=== PATIENT | female | born 1940 | race Hispanic/Latino ===

== ENCOUNTER 2021-12-20 18:16 | Inpatient (IN) | payer MEDICARE, MEDICAID ==
[2021-12-20 19:07] LABS: #Eosinphils 0.1 thou/uL (0.0-0.7); #Lymphocytes 1.6 thou/uL (1.20-3.40); #Monocytes 0.5 thou/uL (0.11-0.59); %Basophils 0.5 % (0.0-1.0); %Eosinophils 2.4 % (0.0-10.0); %Lymphocytes 31.1 % (21.0-51.0); %Monocytes 9.8 % (0.0-10.0); %Neutrophils 56.2 % (42.0-75.0); Hemoglobin 10.9 g/dL (12.0-16.0); Mean Corpuscular HGB CONC 32.6 g/dL (32.0-36.0); Mean Corpuscular Hemoglobin 32.2 pg (27.0-31.0); Mean Corpuscular Volume 98.7 fL (78.0-98.0); Mean Platelet Volume 9.4 fL (7.4-10.4); Platelet Count 217 thou/uL (130-400); RBC Distribution Width 12.3 % (11.5-14.5); Red Blood Cell (RBC) Count 3.38 mill/uL (4.20-5.40); White Blood Cell (WBC) Count 5.3 thou/uL (4.8-10.8)
[2021-12-20 19:29] LABS: Bacteria/HPF None Seen HPF (None Seen); Bilirubin Negative (Negative); Blood, Urine Negative (Negative); Clarity Clear (Clear); Glucose, Urine (Dipstick) Normal (Negative); Ketone, Urine Negative (Negative); Leukocyte 500 Leu/uL (Negative); Nitrite Negative (Negative); Protein, Urine (Dipstick) Negative (Neg-Trace); RBC/HPF 0-3 HPF (0-3); Specific Gravity, Urine 1.015 (1.002-1.036); Squamous Epithelial None Seen HPF (0-3); Urobilinogen Normal mg/dL (Less than 2); WBC/HPF 21-50 HPF (0-3)
[2021-12-20 19:29] LABS: ALT (SGPT) Less than 7 U/L (8-55); AST (SGOT) 11 U/L (5-34); Alkaline Phosphatase 50 U/L (40-110); Anion Gap 12 mmol/L (10-20); BUN (Urea Nitrogen) 21 mg/dL (9.8-20.1); Bilirubin, Total 0.2 mg/dL (0.2-1.2); Calc. Creatinine Clearance 0 mL/min (70-130); Calcium 8.2 mg/dL (7.8-10.44); Carbon Dioxide 27 mmol/L (23-31); Chloride 110 mmol/L (98-107); Estimated GFR 44; Globulin 2.3 g/dL (2.4-3.5); Glucose 106 mg/dL (83-110); Potassium 3.1 mmol/L (3.5-5.1); Protein, Total 5.3 g/dL (5.8-8.1); Sodium 146 mmol/L (136-145)
[2021-12-20] MEDS ORDERED: Vancomycin 1 GM/200 ML BAG ONE (20:15)
[2021-12-20] MEDS ORDERED: cefTRIAXone\\ROCEPHIN 1 GM VIAL ONE (20:15)
[2021-12-20 22:07] VITALS: BMI 22.3
[2021-12-20] MEDS ORDERED: Acetaminophen 325 MG TAB PO PRN (22:30)
[2021-12-20] MEDS ORDERED: Ondansetron ODT 4 MG TAB SL PRN (22:30)
[2021-12-20] MEDS ORDERED: Ondansetron PF 4 MG/2 ML Vial IVP PRN (22:30)
[2021-12-20] MEDS ORDERED: Electrolyte Replacement Protocol 1 EACH FS SCH (22:30)
[2021-12-20] MEDS ORDERED: Lisinopril 10 MG TAB PO SCH (23:00)
[2021-12-20] MEDS ORDERED: Potassium Chloride 20 MEQ TAB PO SCH (23:00)
[2021-12-20] MEDS: Sodium Chloride 0.9% 1,000 ML IV SCH (23:07)
[2021-12-20 23:49] LABS: Magnesium 2.1 mg/dL (1.6-2.6)
[2021-12-21] MEDS ORDERED: Potassium Bicarbonate/Cit Ac 20 MEQ TAB PO SCH (01:00)
[2021-12-21] MEDS: Sodium Chloride 0.9% 1,000 ML IV SCH (05:25)
[2021-12-21] MEDS ORDERED: Acetaminophen 325 MG TAB PO PRN (05:54)
[2021-12-21 05:59] LABS: #Eosinphils 0.1 thou/uL (0.0-0.7); #Lymphocytes 1.6 thou/uL (1.20-3.40); #Monocytes 0.4 thou/uL (0.11-0.59); #Neutrophils 3.7 thou/uL (1.40-6.50); %Basophils 0.7 % (0.0-1.0); %Lymphocytes 26.8 % (21.0-51.0); %Monocytes 7.5 % (0.0-10.0); Hemoglobin 11.7 g/dL (12.0-16.0); Mean Corpuscular HGB CONC 33.3 g/dL (32.0-36.0); Mean Corpuscular Hemoglobin 32.5 pg (27.0-31.0); Mean Corpuscular Volume 97.7 fL (78.0-98.0); Mean Platelet Volume 9.7 fL (7.4-10.4); Platelet Count 236 thou/uL (130-400); RBC Distribution Width 12.1 % (11.5-14.5); White Blood Cell (WBC) Count 5.9 thou/uL (4.8-10.8)
[2021-12-21 06:18] LABS: Anion Gap 14 mmol/L (10-20); BUN (Urea Nitrogen) 16 mg/dL (9.8-20.1); Calc. Creatinine Clearance 44 mL/min (70-130); Calcium 8.4 mg/dL (7.8-10.44); Carbon Dioxide 24 mmol/L (23-31); Chloride 107 mmol/L (98-107); Estimated GFR 63; Glucose 89 mg/dL (83-110); Potassium 4.4 mmol/L (3.5-5.1); Sodium 141 mmol/L (136-145)
[2021-12-21] MEDS: Enoxaparin Sodium 30 MG/0.3 ML SYRINGE SC SCH (08:26)
[2021-12-21] MEDS ORDERED: cefTRIAXone\\ROCEPHIN 1 GM in Sodium Chloride 0.9% 100 ML IVPB SCH (20:00)
[2021-12-21] MEDS ORDERED: Lisinopril 10 MG TAB PO SCH (21:00)
[2021-12-22] MEDS: Enoxaparin Sodium 30 MG/0.3 ML SYRINGE SC SCH (08:11)
[2021-12-22 08:46] VITALS: BP 165/49; TEMP 98
== END 2021-12-22 13:55 | disposition home health service (06) | DRG 922 ==
LOC: ERS 18:16 → T4-A 19:54
PROVIDERS: ADMIT Internal Medicine; ATTEND Internal Medicine
DX: T67.5XXA Heat exhaustion, unspecified, initial encounter (principal); G93.41 Metabolic encephalopathy; N17.9 Acute kidney failure, unspecified; N30.00 Acute cystitis without hematuria; Z20.822 Contact with and (suspected) exposure to COVID-19; E86.0 Dehydration; X58.XXXA Exposure to other specified factors, initial encounter; D64.9 Anemia, unspecified; E87.6 Hypokalemia; D17.24 Benign lipomatous neoplasm of skin and subcutaneous tissue of left leg; Z95.0 Presence of cardiac pacemaker; I25.2 Old myocardial infarction; Z90.710 Acquired absence of both cervix and uterus; Z88.5 Allergy status to narcotic agent; Z79.899 Other long term (current) drug therapy
CPT/HCPCS: 36415; 70450; 71045; 72125; 80048; 80053; 81003; 81015; 83605; 83735; 83880; 84484; 85025; 87040; 87077; 87086; 87186; 93005; 93306; 94760; J0696; J1650; J3370; J3490; J7050; U0003; U0005

== ENCOUNTER 2023-04-17 10:15 | Inpatient (IN) | payer MEDICARE, MEDICAID ==
[2023-04-17 11:06] LABS: #Monocytes 0.7 thou/uL (0.11-0.59); #Neutrophils 12.5 thou/uL (1.40-6.50); %Basophils 0.3 % (0.0-1.0); %Eosinophils 0.1 % (0.0-10.0); %Lymphocytes 4.3 % (21.0-51.0); %Neutrophils 89.9 % (42.0-75.0); Hematocrit 44.6 % (36.0-47.0); Hemoglobin 15.1 g/dL (12.0-16.0); Mean Corpuscular HGB CONC 33.9 g/dL (32.0-36.0); Mean Corpuscular Hemoglobin 31.6 pg (27.0-31.0); Mean Corpuscular Volume 93.3 fl (78.0-98.0); Mean Platelet Volume 11.7 fL (7.4-10.4); Platelet Count 278 10x3/uL (130-400); RBC Distribution Width 13.2 % (11.5-14.5); Red Blood Cell (RBC) Count 4.78 mill/uL (4.20-5.40); White Blood Cell (WBC) Count 13.9 10x3/uL (4.8-10.8)
[2023-04-17] MEDS ORDERED: cefTRIAXone (ROCEPHIN) 1 GM VIAL ONE (11:24)
[2023-04-17] MEDS ORDERED: Sodium Chloride 0.9% 100 ML ONE (11:25)
[2023-04-17 12:30] LABS: ALT (SGPT) 9 U/L (8-55); AST (SGOT) 30 U/L (5-34); Albumin 4.7 g/dL (3.4-4.8); Alkaline Phosphatase 66 U/L (40-110); Anion Gap 14 mmol/L (10-20); BUN (Urea Nitrogen) 18 mg/dL (9.8-20.1); Calc. Creatinine Clearance 0 mL/min (70-130); Calcium 9.9 mg/dL (7.8-10.44); Carbon Dioxide 26 mmol/L (23-31); Chloride 99 mmol/L (98-107); Estimated GFR 72; Globulin 2.7 g/dL (2.4-3.5); Glucose 105 mg/dL (83-110); Potassium 3.4 mmol/L (3.5-5.1); Protein, Total 7.4 g/dL (5.8-8.1); Sodium 136 mmol/L (136-145)
[2023-04-17 12:39] LABS: Bacteria/HPF None Seen HPF (None Seen); Bilirubin Negative (Negative); Blood, Urine Trace (Negative); CAUTI Indications for Culture Dysuria,urgency,freq; Clarity Clear (Clear); Glucose, Urine (Dipstick) Normal (Negative); Ketone, Urine 10 mg/dL (Negative); Leukocyte 25 Leu/uL (Negative); Nitrite Negative (Negative); Protein, Urine (Dipstick) 30 mg/dL (Neg-Trace); RBC/HPF 0-3 HPF (0-3); Specific Gravity, Urine 1.012 (1.002-1.036); Squamous Epithelial 0-3 HPF (0-3); Urobilinogen Normal mg/dL (Less than 2)
[2023-04-17 12:40] LABS: Urine Culture Reflex No No
[2023-04-17 12:42] LABS: Amphetamine Not Detected (NotDetected); Barbiturates Screen Not Detected (NotDetected); Benzodiazepine Screen Not Detected (NotDetected); Cocaine Metabolite Screen Not Detected (NotDetected); Methadone Not Detected (NotDetected); Methamphetamine Not Detected (NotDetected); Opiate Screen Not Detected (NotDetected); Oxycodone Screen Not Detected (NotDetected); Phencyclidine (PCP) Not Detected (NotDetected); THC/Cannabinoid Screen Not Detected (NotDetected); Tricyclic Screen Not Detected (NotDetected)
[2023-04-17 14:14] LABS: SARS-CoV-2 NAA Rapid Test Not Detected (NotDetected)
[2023-04-17 14:46] LABS: Lactic Acid 1.9 mmol/L (0.5-2.2)
[2023-04-17] MEDS ORDERED: Senokot S 8.6-50 MG TAB PO PRN (15:06)
[2023-04-17] MEDS ORDERED: Ondansetron ODT 4 MG TAB PO PRN (15:06)
[2023-04-17] MEDS ORDERED: Calcium Carbonate 500 MG ChewTAB PO PRN (15:06)
[2023-04-17 16:43] VITALS: BMI 27.4
[2023-04-17] MEDS ORDERED: Lisinopril 10 MG TAB PO SCH (21:00)
[2023-04-17] MEDS: Famotidine 20 MG TAB PO SCH (21:18)
[2023-04-18 05:43] LABS: Anion Gap 13 mmol/L (10-20); BUN (Urea Nitrogen) 15 mg/dL (9.8-20.1); Calc. Creatinine Clearance 64 mL/min (70-130); Calcium 8.3 mg/dL (7.8-10.44); Carbon Dioxide 22 mmol/L (23-31); Chloride 107 mmol/L (98-107); Estimated GFR 76; Glucose 64 mg/dL (83-110); Potassium 3.3 mmol/L (3.5-5.1); Sodium 139 mmol/L (136-145)
[2023-04-18 06:42] LABS: #Eosinphils 0.2 thou/uL (0.0-0.7); #Monocytes 0.5 thou/uL (0.11-0.59); #Neutrophils 5.5 thou/uL (1.40-6.50); %Basophils 0.4 % (0.0-1.0); %Eosinophils 2.1 % (0.0-10.0); %Lymphocytes 19.3 % (21.0-51.0); %Monocytes 6.1 % (0.0-10.0); %Neutrophils 71.6 % (42.0-75.0); Hematocrit 35.8 % (36.0-47.0); Mean Corpuscular HGB CONC 32.1 g/dL (32.0-36.0); Mean Platelet Volume 11.5 fL (7.4-10.4); Platelet Count 232 10x3/uL (130-400); RBC Distribution Width 13.5 % (11.5-14.5); Red Blood Cell (RBC) Count 3.71 mill/uL (4.20-5.40); White Blood Cell (WBC) Count 7.7 10x3/uL (4.8-10.8)
[2023-04-18] MEDS ORDERED: Electrolyte Replacement Protocol 1 EACH FS SCH (06:45)
[2023-04-18 06:46] LABS: Hemoglobin 11.5 g/dL (12.0-16.0); Mean Corpuscular Volume 96.5 fl (78.0-98.0)
[2023-04-18 07:17] LABS: Magnesium 1.9 mg/dL (1.6-2.6)
[2023-04-18] MEDS ORDERED: Magnesium 2 GM/50 ML(in water) 2 GM in Premix 1 BAG IVPB SCH (08:00)
[2023-04-18] MEDS ORDERED: Potassium Chloride 20 MEQ TAB PO SCH (08:00)
[2023-04-18] MEDS: Famotidine 20 MG TAB PO SCH (08:26)
[2023-04-18] MEDS: Acetaminophen 325 MG TAB PO PRN (08:26)
[2023-04-18] MEDS ORDERED: cefTRIAXone\\ROCEPHIN 1 GM in Sodium Chloride 0.9% 100 ML IVPB SCH (20:00)
[2023-04-18] MEDS ORDERED: diphenhydrAMINE 30 GM TUBE TOP PRN (21:38)
[2023-04-18] MEDS ORDERED: diphenhydrAMINE 25 MG CAP PO PRN (21:40)
[2023-04-19 05:02] LABS: #Eosinphils 0.3 thou/uL (0.0-0.7); #Monocytes 0.6 thou/uL (0.11-0.59); %Basophils 0.4 % (0.0-1.0); %Eosinophils 4.2 % (0.0-10.0); %Lymphocytes 29.3 % (21.0-51.0); %Monocytes 8.6 % (0.0-10.0); %Neutrophils 57.4 % (42.0-75.0); Hematocrit 35.4 % (36.0-47.0); Hemoglobin 11.6 g/dL (12.0-16.0); Mean Corpuscular HGB CONC 32.8 g/dL (32.0-36.0); Mean Corpuscular Hemoglobin 31.4 pg (27.0-31.0); Mean Corpuscular Volume 95.9 fl (78.0-98.0); Mean Platelet Volume 11.7 fL (7.4-10.4); Platelet Count 238 10x3/uL (130-400); RBC Distribution Width 13.5 % (11.5-14.5); Red Blood Cell (RBC) Count 3.69 mill/uL (4.20-5.40); White Blood Cell (WBC) Count 7.1 10x3/uL (4.8-10.8)
[2023-04-19 05:10] LABS: Anion Gap 14 mmol/L (10-20); BUN (Urea Nitrogen) 19 mg/dL (9.8-20.1); Calc. Creatinine Clearance 60 mL/min (70-130); Calcium 8.1 mg/dL (7.8-10.44); Carbon Dioxide 22 mmol/L (23-31); Chloride 107 mmol/L (98-107); Estimated GFR 70; Glucose 80 mg/dL (83-110); Sodium 139 mmol/L (136-145)
[2023-04-19] MEDS: Lidocaine 4% Patch TD SCH (09:13)
[2023-04-19] MEDS: Acetaminophen 325 MG TAB PO PRN ×2 (09:17→21:28)
[2023-04-19] MEDS: Lisinopril 5 MG TAB PO SCH (21:28)
[2023-04-19] MEDS: Transdermal Patch Removal TOP SCH (21:29)
[2023-04-20] MEDS: Lidocaine 4% Patch TD SCH (10:56)
[2023-04-20] MEDS: Lisinopril 5 MG TAB PO SCH ×2 (19:50→22:18)
[2023-04-20] MEDS: Transdermal Patch Removal TOP SCH (19:54)
[2023-04-20] MEDS ORDERED: Melatonin 3 MG TAB PO PRN (21:14)
[2023-04-21 05:14] LABS: Toxoplasma IgG AB Less than 3.0 IU/mL (0.0-7.1)
[2023-04-21 05:26] LABS: #Eosinphils 0.3 thou/uL (0.0-0.7); #Monocytes 0.5 thou/uL (0.11-0.59); #Neutrophils 3.7 thou/uL (1.40-6.50); %Basophils 0.5 % (0.0-1.0); %Eosinophils 4.5 % (0.0-10.0); %Lymphocytes 30.4 % (21.0-51.0); %Monocytes 7.3 % (0.0-10.0); Hematocrit 35.1 % (36.0-47.0); Hemoglobin 11.3 g/dL (12.0-16.0); Mean Corpuscular HGB CONC 32.2 g/dL (32.0-36.0); Mean Corpuscular Hemoglobin 31.1 pg (27.0-31.0); Mean Corpuscular Volume 96.7 fl (78.0-98.0); Mean Platelet Volume 11.9 fL (7.4-10.4); Platelet Count 230 10x3/uL (130-400); RBC Distribution Width 13.2 % (11.5-14.5); Red Blood Cell (RBC) Count 3.63 mill/uL (4.20-5.40); White Blood Cell (WBC) Count 6.5 10x3/uL (4.8-10.8)
[2023-04-21 05:55] LABS: Anion Gap 11 mmol/L (10-20); BUN (Urea Nitrogen) 16 mg/dL (9.8-20.1); Calc. Creatinine Clearance 68 mL/min (70-130); Calcium 8.5 mg/dL (7.8-10.44); Carbon Dioxide 28 mmol/L (23-31); Chloride 105 mmol/L (98-107); Estimated GFR 82; Glucose 82 mg/dL (83-110); Potassium 4.1 mmol/L (3.5-5.1); Sodium 140 mmol/L (136-145)
[2023-04-21] MEDS: Lidocaine 4% Patch TD SCH (09:28)
[2023-04-21] MEDS: Lisinopril 5 MG TAB PO SCH (21:14)
[2023-04-21] MEDS: Transdermal Patch Removal TOP SCH (22:42)
[2023-04-22 05:14] LABS: Toxoplasma IgM AB Less than 3.0 AU/mL (0.0-7.9)
[2023-04-22] MEDS: Lidocaine 4% Patch TD SCH (09:43)
[2023-04-22 17:48] VITALS: BP 188/111; TEMP 97.7
== END 2023-04-22 19:15 | DRG 871 ==
LOC: ERS 10:15 → SURG A 15:06
PROVIDERS: ADMIT Student in an Organized Health Care Education/Training Program; ATTEND Internal Medicine
DX: A41.9 Sepsis, unspecified organism (principal); G93.41 Metabolic encephalopathy; I50.32 Chronic diastolic (congestive) heart failure; N30.00 Acute cystitis without hematuria; F03.90 Unspecified dementia, unspecified severity, without behavioral disturbance, psychotic disturbance, mood disturbance, and anxiety; I25.10 Atherosclerotic heart disease of native coronary artery without angina pectoris; Z79.899 Other long term (current) drug therapy; Z88.8 Allergy status to other drugs, medicaments and biological substances; Z90.710 Acquired absence of both cervix and uterus; Z95.0 Presence of cardiac pacemaker; I11.0 Hypertensive heart disease with heart failure; E87.6 Hypokalemia; I44.7 Left bundle-branch block, unspecified; Z11.52 Encounter for screening for COVID-19
CPT/HCPCS: 36415; 36416; 51701; 70450; 70551; 71045; 72125; 80048; 80053; 80306; 81001; 82140; 83605; 83735; 84100; 84145; 84443; 85025; 86777; 86778; 87040; 87086; 93005; 95711; 95819; 96361; 96365; J0696; J3475; J3490